=== PATIENT | male | born 2005 | race Caucasian/White ===

== ENCOUNTER 2023-04-08 02:42 | Inpatient (IN) | payer MEDICAID, SELFPAY ==
[~2023-04-08] VITALS: Ht 190.5 cm; Wt 75.0 kg
[2023-04-08 03:44] LABS: HEMATOCRIT 44.9 % (42.0-52.0); HEMOGLOBIN 15.2 g/dl (13.5-17.5); MEAN CORPUSCULAR HEMOGLOBIN 29.9 pg (27.0-33.0); MEAN CORPUSCULAR HGB CONC 33.9 g/dl (32.0-36.5); MEAN CORPUSCULAR VOLUME 88.4 fl (80.0-96.0); PLATELET COUNT, AUTOMATED 160 10^3/uL (150-450); RED BLOOD COUNT 5.08 10^6/uL (4.30-6.10); WHITE BLOOD COUNT 7.9 10^3/uL (4.0-10.0)
[2023-04-08 03:56] LABS: ETHYL ALCOHOL (ETHANOL) < 0.003 % (0.000-0.010)
[2023-04-08 03:58] LABS: ACETAMINOPHEN LEVEL < 2.0 UG/ML (10.0-20.0); ALBUMIN 4.9 G/DL (3.2-5.2); ALKALINE PHOSPHATASE 84 U/L (46-116); ALT/SGPT 31 U/L (7.0-40); AST/SGOT 25 U/L (<34); BILIRUBIN,DIRECT 0.3 MG/DL (<0.4); BILIRUBIN,TOTAL 0.8 MG/DL (0.3-1.2); BLOOD UREA NITROGEN 16 MG/DL (9-23); CALCIUM LEVEL 9.6 MG/DL (8.5-10.1); CARBON DIOXIDE LEVEL 28 MMOL/L (20-31); CHLORIDE LEVEL 103 MMOL/L (98-107); CREATININE FOR GFR 0.78 MG/DL (0.70-1.30); GLUCOSE, FASTING 95 MG/DL (60-100); POTASSIUM SERUM 4.1 MMOL/L (3.5-5.1); SALICYLATE LEVEL < 3.0 MG/DL (<30); SODIUM LEVEL 141 MMOL/L (136-145); TOTAL PROTEIN 7.3 G/DL (5.7-8.2)
[2023-04-08 04:00] LABS: THYROID STIMULATING HORMONE 4.724 uIU/ML (0.48-4.17)
[2023-04-08 04:32] LABS: AMPHETAMINES LEVEL URINE NEGATIVE (NEGATIVE); BENZODIAZEPINES URINE NEGATIVE (NEGATIVE)
[2023-04-08 04:33] LABS: BARBITURATES URINE NEGATIVE (NEGATIVE); COCAINE METABOLITE URINE NEGATIVE (NEGATIVE); METHADONE URINE NEGATIVE (NEGATIVE); OPIATES URINE NEGATIVE (NEGATIVE); PHENCYCLIDINE URINE NEGATIVE (NEGATIVE)
[2023-04-08 04:41] LABS: CANNABINOIDS URINE POSITIVE (NEGATIVE)
[2023-04-08] MEDS ORDERED: MED REC IN PROGRESS XX SCH (09:25)
[2023-04-08] MEDS ORDERED: HOME MED LIST COMPLETE! XX SCH (09:30)
[2023-04-08] MEDS ORDERED: hydrOXYzine 50 MG TAB PO ONE (18:25)
[2023-04-09] MEDS ORDERED: LORazepam 2 MG TAB PO ONE (00:50)
[2023-04-09] MEDS ORDERED: diphenhydrAMINE 25MG CAP PO PRN (10:50)
[2023-04-09] MEDS ORDERED: traZODone 50 MG TAB PO PRN (10:50)
[2023-04-09] MEDS ORDERED: ACETAMINOPHEN TAB 650MG DOSE (2X325MG) PO PRN (10:50)
[2023-04-09] MEDS ORDERED: MAALOX 30 ML SUSP *UDC PO PRN (10:50)
[2023-04-09] MEDS ORDERED: MOM 30ML SUSPENSION UDC PO PRN (10:50)
[2023-04-09] MEDS ORDERED: IBUPROFEN 400MG TAB PO PRN (10:50)
[2023-04-09 13:13] VITALS: BP 119/66; TEMP 98.5; O2SAT 98
[2023-04-09 18:03] VITALS: BP 107/60; TEMP 98.3; O2SAT 98
[2023-04-10 06:52] VITALS: BP 108/62; TEMP 96.8; O2SAT 96
[2023-04-10 08:18] LABS: FREE T4 1.41 NG/DL (0.83-1.43)
[2023-04-10] MEDS ORDERED: ACETAMINOPHEN TAB 650MG DOSE (2X325MG) PO PRN (10:40)
[2023-04-10] MEDS ORDERED: IBUPROFEN 400MG TAB PO PRN (10:40)
[2023-04-10] MEDS ORDERED: traZODone 50 MG TAB PO PRN (10:40)
[2023-04-10] MEDS ORDERED: diphenhydrAMINE 25MG CAP PO PRN (10:40)
[2023-04-10] MEDS ORDERED: TRAZ-252 PO (11:09)
[2023-04-10 16:26] VITALS: BP 112/70; TEMP 98; O2SAT 96
[2023-04-11 06:49] VITALS: BP 113/64; TEMP 97.5; O2SAT 99
== END 2023-04-11 13:09 | disposition home or self-care (01) | DRG 755 ==
LOC: M ED 02:42 → M ED INP 04-09 10:49 → M PSY 04-09 13:09
PROVIDERS: ADMIT Student in an Organized Health Care Education/Training Program; ATTEND Student in an Organized Health Care Education/Training Program
DX: F43.25 Adjustment disorder with mixed disturbance of emotions and conduct (principal); E02 Subclinical iodine-deficiency hypothyroidism; Z81.8 Family history of other mental and behavioral disorders; Z81.1 Family history of alcohol abuse and dependence; Z63.8 Other specified problems related to primary support group; Z63.0 Problems in relationship with spouse or partner